=== PATIENT | male | born 1985 ===

== ENCOUNTER → 2024-04-12 | Outpatient (CLI) | payer MEDICAID | END | disposition home or self-care (01) | LOC: Rad HDHVI 11:00 | PROVIDERS: ATTEND Internal Medicine Cardiovascular Disease | DX: Z01.810 Encounter for preprocedural cardiovascular examination (principal) | CPT/HCPCS: 93306 ==

== ENCOUNTER → 2024-04-15 | Outpatient (CLI) | payer MEDICAID ==
[~2024-04-15] MED LIST: IOHEXOL 350 MG/ML 100ML IJ ONE
[2024-04-15 11:00] VITALS: BP 165/101; PULSE 101; RESP 18; O2SAT 96
[2024-04-15 11:22] VITALS: BP 169/96; PULSE 101; RESP 18; O2SAT 96
--- NOTE | 2024-04-15 11:44 | DVH ---
CTA Chest with intravenous contrast INDICATION: R/O PE COMPARISON: None TECHNIQUE: Multidetector spiral CTA of the chest was performed of the chest with intravenous contrast . PULMONARY ANGIOGRAPHY PROTOCOL was utilized using a bolus-tracking technique centered on the main p ulmonary artery. Axial, coronal and sagittal multiplanar and MIP reformats were performed. CONTRAST: Type of contrast: Omni 350 Contrast injected: 100 ml Radiation dose : Chest: CTDI volume is 46 mGy. Dose-length product is 1895.73 mGy*cm The dose indicators for CT are the volume computed Tomography (CT) dose Index (CTDIvol) and the dose Length product (DLP), and are measured in units of mGy and mGy-cm, respectively. These indicators are not patient dose, but values generated from the CT scanner acquisition factors. The report includes radiation exposure data for exposures received during this examination. Findings: Pulmonary artery: No pulmonary embolism Lower neck: Normal thyroid. Lungs: No focal consolidation, pleural effusion or pneumothorax. Heart/Vascular Structures: Normal heart size. No pericardial effusion. Lymph Nodes: No adenopathy Pleura: No pleural effusion or significant pneumothorax. Musculoskeletal: No acute osseous abnormality. Soft tissues: Normal. Upper abdomen: Diffuse hepatic steatosis. IMPRESSION: 1. No pulmonary embolism. 2. No acute thoracic finding. 3. Diffuse hepatic steatosis. HS:Y
== END | disposition home or self-care (01) ==
LOC: Rad HDHVI 10:49
PROVIDERS: ATTEND Internal Medicine Cardiovascular Disease
DX: R06.02 Shortness of breath (principal); K76.0 Fatty (change of) liver, not elsewhere classified
CPT/HCPCS: 71275; G0463; Q9967

== ENCOUNTER → 2024-05-09 | Outpatient (CLI) | payer MEDICAID ==
[~2024-05-09] VITALS: Ht 157.5 cm; Wt 145.1 kg
[~2024-05-09] MED LIST changes: +ADENOSINE 122 MG in GIVE UN-DILUTED 0 ML IV ONE; +ADENOSINE 90 MG/30 ML INJ IV ONE; -IOHEXOL 350 MG/ML 100ML IJ ONE
[2024-05-09] MEDS: METOPROLOL SUCCINATE XL 50 MG TAB PO ONE ×2 (10:01→10:04)
== END | disposition home or self-care (01) ==
LOC: Rad HDHVI 08:29
PROVIDERS: ATTEND Internal Medicine Cardiovascular Disease
DX: Z01.810 Encounter for preprocedural cardiovascular examination (principal); I10 Essential (primary) hypertension; E78.00 Pure hypercholesterolemia, unspecified; R07.89 Other chest pain
CPT/HCPCS: 78452; 93005; 96374; 96375; A9500; J0153